=== PATIENT | female | born 1960 ===

== ENCOUNTER 2018-11-25 09:15 | Inpatient (IN) | payer OTHER ==
[~2018-11-25] VITALS: Ht 160 cm; Wt 61.2 kg
[2018-11-25] MEDS ORDERED: LEXAPRO20 MG PO (12:56)
[2018-12-03] MEDS ORDERED: PERCOCET 5-3251 EACH PO (09:49)
== END 2018-12-03 11:46 | disposition home or self-care (01) | DRG 330 ==
LOC: ADM 09:15 → EDSTATUS 09:15 → O/R 11-30 06:25 → SURH 11-30 06:25
PROVIDERS: ADMIT Surgery
PROC: 07TB4ZZ Resection of Mesenteric Lymphatic, Percutaneous Endoscopic Approach (ICD-10-PCS; 2018-11-30)
PROC: 0DTF4ZZ Resection of Right Large Intestine, Percutaneous Endoscopic Approach (ICD-10-PCS; principal; 2018-11-30 11:15)
DX: K64.4 Residual hemorrhoidal skin tags (principal); K62.5 Hemorrhage of anus and rectum; K62.89 Other specified diseases of anus and rectum; D12.2 Benign neoplasm of ascending colon; R59.0 Localized enlarged lymph nodes; F41.8 Other specified anxiety disorders; F17.208 Nicotine dependence, unspecified, with other nicotine-induced disorders